=== PATIENT | female | born 1990 | race African-American/Black ===

== ENCOUNTER 2017-09-04 16:21 | Emergency (ER) | payer BC, SELFPAY ==
[2017-09-04 17:18] LABS: #Eosinphils 0.1 thou/uL (0.0-0.7); #Lymphocytes 3.1 thou/uL (1.20-3.40); #Monocytes 0.7 thou/uL (0.11-0.59); #Neutrophils 6.2 thou/uL (1.40-6.50); %Basophils 0.4 % (0.0-1.0); %Eosinophils 1.3 % (0.0-10.0); %Lymphocytes 30.6 % (21.0-51.0); %Monocytes 6.6 % (0.0-10.0); %Neutrophils 61.1 % (42.0-75.0); Hemoglobin 5.3 g/dL (12.0-16.0); Mean Corpuscular HGB CONC 27.6 g/dL (32.0-36.0); Mean Corpuscular Hemoglobin 17.1 pg (27.0-31.0); Mean Platelet Volume 10.6 fL (7.4-10.4); Platelet Count 438 thou/uL (130-400); RBC Distribution Width 19.5 % (11.5-14.5); Red Blood Cell (RBC) Count 3.08 mill/uL (4.20-5.40); White Blood Cell (WBC) Count 10.2 thou/uL (4.8-10.8)
[2017-09-04 17:34] LABS: Anisocytosis MODERATE=16-30 cells (100X) (0-5/hpf); Elliptocytes SLIGHT = 2-5 cells (100X) (0-1/hpf); Hypochromia MODERATE=16-30 cells (100X) (0-5/hpf); MDiff Complete? YES; Microcytosis MODERATE=15-30 cells (100X) (0-5/hpf); Ovalocytes SLIGHT = 2-5 cells (100X) (0-1/hpf); PLT Morphology Comment Appears Increased; Polychromasia MODERATE = 3-4 cells (100X) (0-2/hpf); Reflex for Review?? YES; Stomatocytes SLIGHT = 2-5 cells (100X) (0-1/hpf); Target Cells SLIGHT = 2-5 cells (100X) (0-1/hpf)
[2017-09-04 17:38] LABS: ALT (SGPT) 9 U/L (8-55); AST (SGOT) 15 U/L (5-34); Alkaline Phosphatase 62 U/L (40-150); Anion Gap 12 mmol/L (10-20); BUN (Urea Nitrogen) 10 mg/dL (7.0-18.7); Bilirubin, Total 0.3 mg/dL (0.2-1.2); Calc. Creatinine Clearance 0 mL/min (70-130); Calcium 8.8 mg/dL (7.8-10.44); Carbon Dioxide 22 mmol/L (22-29); Chloride 106 mmol/L (98-107); Estimated GFR-MDRD Greater than 90; Globulin 3.1 g/dL (2.4-3.5); Glucose 115 mg/dL (70-105); Potassium 3.7 mmol/L (3.5-5.1); Protein, Total 7.1 g/dL (6.0-8.3); Sodium 136 mmol/L (136-145)
[2017-09-04 19:37] LABS: Bilirubin Small (Negative); Blood, Urine Large (Negative); Clarity CLOUDY (Clear); Glucose, Urine (Dipstick) Negative (Negative); Leukocyte Negative (Negative); Nitrite Negative (Negative); Protein, Urine (Dipstick) 100 mg/dL (Neg-Trace); Specific Gravity, Urine 1.033 (1.002-1.036); pH, Urine 5.5 (5.0-9.0)
[2017-09-04 19:39] LABS: Bacteria/HPF None Seen HPF (None Seen); Hyaline Casts/LPF 4-6 HYALINE CAST LPF (0-3 Hyaline); Pathc Cast-AUWi Flag 1.15 (0-2.49); RBC/HPF GREATER THAN 50-TNTC HPF (0-3)
[2017-09-04 19:50] LABS: Renal Epithelial None Seen HPF (0-3); Transitional Epithelial NONE SEEN HPF (0-3)
[2017-09-04] MEDS ORDERED: Tranexamic Acid 650 MG TAB PO SCH (21:30)
--- NOTE | 2017-09-04 21:57 | ULT ---
ULTRASOUND PELVIC ULTRASOUND TRANSVAGINAL DOPPLER DUPLEX: 09/04/17 HISTORY: 27-year-old female with menorrhagia. Dr. Villanueva discussed the findings by telephone with Dr. Butts at 7:12 p.m. on 09/04/17. TECHNIQUE: Transabdominal transducer used to evaluate intrapelvic contents using the urinary bladder as an acous tic window. Endovaginal transducer used to visualize intrapelvic contents in greater detail. Color fl ow Doppler and Pulsed Doppler spectral waveform analysis of ovaries. FINDINGS: There is an IUD which is positioned inferiorly, in the lower uterine segment. It pierces a 4 x 3.5 x 3.5 cm round, heterogeneously slightly hypoechoic solid mass at the lower uterine body, consistent wi th a fibroid tumor. The endometrial stripe is 0.5 cm near the fundus. Between this fundal portion and the lower uterine portion, there appears to be a large expansion of the endometrial stripe up to 20 mm. The etiology of this is uncertain. There is no free fluid in the cul-de-sac. Right ovary is 2.5 x 2 x 1.5 cm. Left ovary is 4 x 1.5 x 2.5 cm. No ovarian cyst identified. Blood flow demonstrated in bilateral ovaries by doppler. No ovarian cyst. Uterus measures approximately 10 x 5.5 x 5.5 cm. IMPRESSION: 1. An inferiorly positioned intrauterine device (IUD) impales a uterine leiomyoma in the lower u terine segment. 2. Apparent expansion and blurring of the endometrial stripe at the uterine body and lower uteri ne segment, of uncertain etiology. Code [facility] [place] POS: CESIA
--- NOTE | 2017-09-05 07:41 | CON ---
DATE OF CONSULTATION: 09/04/2017 REFERRING PHYSICIAN: Dr. Butts, ER physician. CHIEF COMPLAINT: Vaginal bleeding with IUD suspected to have eroded into a fibroid. HISTORY OF PRESENT ILLNESS: Patient is a 27-year-old female who is presenting to [facility] with heavy vaginal bleeding, shortness of breath, dizziness, and lightheadedness. She reports that she has had 2 periods a month for the last several years. She reports one having heavy bleeding 6-8 days and the other having mainly spotting for several days at a time, sometimes heavier. The pa anne reports that she had a ParaGard IUD placed about 5-8 years ago. During the ER evaluation, an u ltrasound was performed and the patient was noted to have a uterine fibroid that is 4 x 3.5 cm and gi keven the appearance of being a piercing into the fibroid itself, MORNING NANNY was consulted for evaluation a nd assistance in removal. The patient desires IUD to be removed. She has not been sexually active f or several years and the patient does report in last few weeks, she has begun taking iron, but has no t been taking it consistently for the last several years. Hemoglobin coming in today was 5.3 with he matocrit of 19.1, platelets 438,000. The patient denies fever. She reports headache, again some diz ziness and lightheadedness and generalized weakness and fatigue. Denies chest pain. Denies cough, d enies nausea, vomiting. Denies skin changes or rash or easy bruising. SOCIAL HISTORY: The patient denies smoking tobacco or drug use. PHYSICAL EXAMINATION: VITAL SIGNS: Blood pressure 122/64, pulse of 73, respiratory rate of 18, temperature 98.1. Satting 100% on room air. GENERAL: She appears to be in no acute distress. She is alert and oriented, cooperative and pleasan t to interact with. She has blood hanging at the time of evaluation reportedly her first unit of 2. HEENT: Head is normocephalic, atraumatic. LUNGS: Clear to auscultation bilaterally. HEART: Regular rate and rhythm. ABDOMEN: Soft. EXTREMITIES: Nontender, nonedematous. PELVIC: Vulva is without masses, lesions or erythema. She does have some blood present staining her perineum at a very small scant amount. On speculum exam, patient had approximately 10 mL of blood i n the vault with easily visible cervix. The IUD strings were visible on initial evaluation. With th e ring forceps, the IUD strings were grasped and the IUD was easily removed, confirming a ParaGard. Once removal of IUD, the remaining blood was then removed with odell swabs and inspection of the cervix did not reveal any significant bleeding over the course of about a minute or two. Once I was satisf ied that the patient was not going to have any more significant bleeding, the speculum exam was finis hed and the speculum was removed. The patient was placed back in a normal comfortable position. ASSESSMENT AND PLAN: The patient is a 27-year-old female with menometrorrhagia and an approximately 4 cm fibroid with a ParaGard IUD in place. There was some concern that this ParaGard was the cause o f some of the increased bleeding as it seemed to be impaled in the body of the fibroid. ParaGard IUD s are known to give some women heavier periods and very likely may be the culprit for some of her ble eding. It does not appear that the piercing of the fibroid has caused any acute bleeding. I am comf ortable the patient being discharged to home once her blood was completed and can go home on Lysteda 1500 mg 3 times a day for the next 2-3 days as she is beginning her period as of yesterday. This may help reduce the amount of bleeding significantly. With the ParaGard IUD removed, she may notice her bleeding in her future coming months to be significantly reduced. Patient has been counseled that t he beginning ibuprofen or other NSAID the moment she feels like her period is about to start and taki ng it consistently through the heavy days of her period may actually reduce also the amount of bleedi ng she is having. If the patient continues to have unacceptably heavy periods, she has been recommen ded to see an MORNING NANNY for evaluation and management. She has been encouraged to follow up also with t his uterine fibroid as it may be also a source of her heavy bleeding given the apparent location. Th e patient is otherwise safe to go home again after the blood transfusion. Thank you for the opportunity to participate in the care of Federica Radha Khai.
== END 2017-09-04 23:05 | disposition home or self-care (01) ==
LOC: ERS 16:21
DX: N93.9 Abnormal uterine and vaginal bleeding, unspecified (principal); D64.9 Anemia, unspecified
CPT/HCPCS: 36415; 36430; 76856; 80053; 81003; 81015; 85025; 85060; 86850; 86900; 86901; P9016